=== PATIENT | male | born 1950 | race Caucasian/White ===

== ENCOUNTER 2018-03-22 04:46 | Emergency (ER) | payer MEDICARE ==
[~2018-03-22] VITALS: Ht 177.8 cm; Wt 112.3 kg
[2018-03-22 05:30] LABS: BASOPHILS # (AUTO) 0.1 X10'3 (0-0.2); BASOPHILS % (AUTO) 0.6 % (0-1); EOSINOPHILS # (AUTO) 0.1 X10'3 (0-0.9); EOSINOPHILS % (AUTO) 1.5 % (0-6); HEMATOCRIT 46.5 % (42.0-52.0); HEMOGLOBIN 15.4 g/dl (14.0-17.9); LYMPHOCYTES # (AUTO) 2.7 X10'3 (1.1-4.8); LYMPHOCYTES % (AUTO) 30.9 % (21-51); MEAN CORPUSCULAR HEMOGLOBIN 28.7 PG (27.0-31.0); MEAN CORPUSCULAR HGB CONC 33.2 % (33.0-36.5); MEAN CORPUSCULAR VOLUME 86.5 FL (78-98); MEAN PLATELET VOLUME 9.3 FL (7.4-10.4); MONOCYTES # (AUTO) 0.6 X10'3 (0-0.9); MONOCYTES % (AUTO) 6.6 % (2-12); NEUTROPHILS # (AUTO) 5.3 X10'3 (1.8-7.7); NEUTROPHILS % (AUTO) 60.4 % (42-75); PLATELET COUNT 263 X10'3 (140-440); RED BLOOD COUNT 5.37 X10'6 (4.70-6.10); RED CELL DISTRIBUTION WIDTH 14.4 % (11.5-14.5); WHITE BLOOD COUNT 8.8 X10'3 (4.5-11.0)
[2018-03-22] MEDS ORDERED: POTA10CA44 PO (05:34)
[2018-03-22] MEDS ORDERED: CHLO25TA10 (05:34)
[2018-03-22] MEDS ORDERED: METF500T PO (05:34)
[2018-03-22] MEDS ORDERED: VALA500T37 PO (05:34)
[2018-03-22] MEDS ORDERED: ASPI-1264 PO (05:34)
[2018-03-22] MEDS ORDERED: AZIL1TAB2 (05:34)
[2018-03-22] MEDS ORDERED: CARV3.122 PO (05:34)
[2018-03-22] MEDS ORDERED: ATOR20TA PO (05:34)
[2018-03-22] MEDS ORDERED: TEST2.5G2 TD (05:34)
[2018-03-22 05:38] LABS: PARTIAL THROMBOPLASTIN TIME 27 SECONDS (22-32); PROTHROMBIN TIME 10.8 SECONDS (9.0-12.0)
[2018-03-22 05:49] LABS: ALANINE AMINOTRANSFERASE 28 U/L (12-78); ALBUMIN 3.9 G/DL (3.4-5.0); ALBUMIN/GLOBULIN RATIO 1.1 (1.1-1.5); ALKALINE PHOSPHATASE 96 IU/L (46-116); ANION GAP 10 (8-16); ASPARTATE AMINO TRANSFERASE 15 U/L (10-37); BILIRUBIN,TOTAL 0.8 MG/DL (0.1-1.0); BLOOD UREA NITROGEN 16 MG/DL (7-18); BUN/CREATININE RATIO 12.8 (5.4-32.0); CALCIUM 9.1 MG/DL (8.5-10.1); CHLORIDE 103 MMOL/L (99-107); CREATININE 1.25 MG/DL (0.60-1.10); GLUCOSE 115 MG/DL (70-104); POTASSIUM 3.4 MMOL/L (3.5-5.1); SODIUM 140 MMOL/L (135-145); TOTAL CARBON DIOXIDE 27.4 MMOL/L (24-32); TOTAL PROTEIN 7.4 G/DL (6.4-8.2); eGFR 57 ML/MIN
[2018-03-22 09:41] VITALS: BP 134/89
== END 2018-03-22 09:42 | disposition home or self-care (01) ==
LOC: ER 04:47
DX: R07.9 Chest pain, unspecified (principal); Z79.82 Long term (current) use of aspirin; Z79.84 Long term (current) use of oral hypoglycemic drugs; Z79.899 Other long term (current) drug therapy
CPT/HCPCS: 36415; 71045; 80053; 84484; 85025; 85610; 85730; 93005; 99285; J7030

== ENCOUNTER 2019-04-28 08:57 | Inpatient (IN) | payer MEDICARE ==
[~2019-04-28] VITALS: Ht 180.3 cm; Wt 106.8 kg
[~2019-04-28 08:57] MED LIST: ASPI-1264 PO; ATOR20TA PO; AZIL1TAB2 PO; CARV3.122 PO; CHLO25TA10; METF500T PO; POTA10CA44 PO; TEST2.5G2 TD; VALA500T37 PO
--- NOTE | 2019-04-28 09:10 | NUR ---
PATIENT IN ROOM WITH GOWN ON. SPEECH WNL, NO FACIAL DROOP NOTED, PATIETN STANDING IN ROOM, MOVING WNL LABS DRAWN, PATIETN TO CT SCAN IN WC
--- NOTE | 2019-04-28 09:19 | NUR ---
BACK FROM CT
[2019-04-28 09:23] LABS: BASOPHILS # (AUTO) 0.1 X10'3 (0-0.2); BASOPHILS % (AUTO) 0.7 % (0-1); EOSINOPHILS # (AUTO) 0.1 X10'3 (0-0.9); EOSINOPHILS % (AUTO) 1.8 % (0-6); HEMATOCRIT 42.4 % (42.0-52.0); LYMPHOCYTES # (AUTO) 2.3 X10'3 (1.1-4.8); MEAN CORPUSCULAR HEMOGLOBIN 28.4 PG (27.0-31.0); MEAN CORPUSCULAR HGB CONC 33.1 g/dL (33.0-36.5); MEAN CORPUSCULAR VOLUME 85.9 FL (78-98); MEAN PLATELET VOLUME 8.5 FL (7.4-10.4); MONOCYTES # (AUTO) 0.6 X10'3 (0-0.9); NEUTROPHILS # (AUTO) 5.1 X10'3 (1.8-7.7); NEUTROPHILS % (AUTO) 62.5 % (42-75); PLATELET COUNT 293 X10'3 (140-440); RED BLOOD COUNT 4.93 X10'6 (4.70-6.10); RED CELL DISTRIBUTION WIDTH 16.3 % (11.5-14.5); WHITE BLOOD COUNT 8.2 X10'3 (4.5-11.0)
[2019-04-28 09:33] LABS: PARTIAL THROMBOPLASTIN TIME 29 SECONDS (22-32)
--- NOTE | 2019-04-28 09:45 | NUR ---
STROKE ALERT CALLED OFF BY DR DOMINGUEZ
[2019-04-28 09:57] LABS: ALANINE AMINOTRANSFERASE 22 U/L (12-78); ALBUMIN 3.7 G/DL (3.4-5.0); ALKALINE PHOSPHATASE 98 IU/L (46-116); ANION GAP 12 (8-16); ASPARTATE AMINO TRANSFERASE 12 U/L (10-37); BILIRUBIN,TOTAL 0.7 MG/DL (0.1-1.0); BLOOD UREA NITROGEN 16 MG/DL (7-18); BUN/CREATININE RATIO 11.9 (5.4-32.0); CHLORIDE 104 MMOL/L (99-107); CREATININE 1.35 MG/DL (0.60-1.10); GLUCOSE 129 MG/DL (70-104); SODIUM 141 MMOL/L (135-145); TOTAL CARBON DIOXIDE 25.2 MMOL/L (24-32); TOTAL PROTEIN 7.5 G/DL (6.4-8.2); TROPONIN I < 0.04 NG/ML (0.0-0.05); eGFR 52 ML/MIN
[2019-04-28] MEDS ORDERED: acetaminophen 325mg tablet PO PRN ×2 (11:15)
[2019-04-28] MEDS ORDERED: magnesium 2GM in 50ml NS 50 ML IV PRN (11:15)
[2019-04-28] MEDS ORDERED: potassium CL 10mEq/100ml bag 100 ML IV PRN ×2 (11:15)
[2019-04-28] MEDS ORDERED: ondansetron/PF 4mg/2ml inj IV PRN (11:15)
[2019-04-28] MEDS ORDERED: morphine 2 MG/ML inj. syringe IV PRN (11:15)
[2019-04-28] MEDS ORDERED: mag hydrox/Alum hydrox/simeth 30ml oral suspension PO PRN (11:15)
[2019-04-28] MEDS ORDERED: magnesium 4gm in 100ml NS 100 ML IV PRN (11:15)
[2019-04-28] MEDS ORDERED: HYDROcodone/acetaminophen 5mg/325mg tablet PO PRN (11:15)
[2019-04-28] MEDS ORDERED: magnesium hydroxide 30ml (MOM) UD suspension PO PRN (11:15)
[2019-04-28] MEDS ORDERED: magnesium Cl slow-release 64mg tablet PO PRN (11:15)
[2019-04-28] MEDS ORDERED: potassium Cl 20 mEq SR tablet PO PRN ×2 (11:15)
[2019-04-28 11:18] VITALS: BP 116/75
[2019-04-28] MEDS ORDERED: dextrose 50%-water 50ml dispensing syringe IV PRN ×2 (11:30)
[2019-04-28] MEDS ORDERED: insulin Lispro (HumaLOG) vial - multi-dose SQ SCH (11:30)
[2019-04-28] MEDS ORDERED: glucagon, human recombinant 1mg kit SUBCUT PRN (11:30)
[2019-04-28] MEDS ORDERED: MESSAGE TO PHARMACY PO ONE (11:30)
[2019-04-28] MEDS ORDERED: dextrose ORAL solution 15 GM/59 ML bottle PO PRN ×2 (11:30)
[2019-04-28] MEDS: normal saline 1000ml 1,000 ML IV SCH (11:40)
[2019-04-28] MEDS ORDERED: POTA-82 PO (11:48)
[2019-04-28] MEDS ORDERED: SPIR25TA5 PO (11:48)
--- NOTE | 2019-04-28 11:54 | NUR ---
ATTEMPTED TO CALL REPORT: ADELINA FUENTES WILL CALL BACK
[2019-04-28 12:06] LABS: HEMOGLOBIN A1C 6.3 % (4.5-6.2)
[2019-04-28] MEDS ORDERED: MAGN400C PO (12:15)
[2019-04-28] MEDS ORDERED: CHOL10002 PO (12:15)
[2019-04-28] MEDS ORDERED: CRAN1CAP3 PO (12:15)
--- NOTE | 2019-04-28 12:17 | NUR ---
PHONE REPORT TO ADELINA FUENTES
--- NOTE | 2019-04-28 12:30 | NUR ---
Patient in room [facility]. I have received report from Unique FUENTES and had the opportunity to ask questions and assume patient care.
[2019-04-28 12:40] VITALS: BP 116/75
--- NOTE | 2019-04-28 12:40 | NUR ---
patient arrived on floor. walked to bed. pleasant person
[2019-04-28 17:52] VITALS: BP 135/66
--- NOTE | 2019-04-28 18:03 | NUR ---
Problems reprioritized. Patient report given, questions answered & plan of care reviewed with Rachael FUENTES.
--- NOTE | 2019-04-28 18:15 | NUR ---
Patient in room [facility]. I have received report from ALFREDO Dejesus and had the opportunity to ask questions and assume patient care.
[2019-04-28 19:18] VITALS: BP 117/72
[2019-04-28] MEDS: heparin, porcine 5000 units/ml vial SQ SCH (19:32)
[2019-04-28] MEDS ORDERED: insulin glargine (Lantus) pen - multi-dose SQ SCH (21:00)
[2019-04-28] MEDS ORDERED: temazepam 15mg capsule PO PRN (21:00)
[2019-04-28 23:18] VITALS: BP 118/60
[2019-04-29] MEDS: normal saline 1000ml 1,000 ML IV SCH (00:10)
[2019-04-29 02:00] VITALS: BP 119/57
[2019-04-29 03:18] VITALS: BP 125/62
[2019-04-29 06:10] VITALS: BP 103/52
--- NOTE | 2019-04-29 06:23 | NUR ---
Problems reprioritized. Patient report given, questions answered & plan of care reviewed with ALFREDO Mahan.
[2019-04-29 07:17] LABS: BASOPHILS # (AUTO) 0.1 X10'3 (0-0.2); BASOPHILS % (AUTO) 0.7 % (0-1); EOSINOPHILS # (AUTO) 0.1 X10'3 (0-0.9); EOSINOPHILS % (AUTO) 1.5 % (0-6); HEMATOCRIT 39.8 % (42.0-52.0); HEMOGLOBIN 13.4 g/dl (14.0-17.9); LYMPHOCYTES # (AUTO) 2.3 X10'3 (1.1-4.8); LYMPHOCYTES % (AUTO) 30.5 % (21-51); MEAN CORPUSCULAR HEMOGLOBIN 28.6 PG (27.0-31.0); MEAN CORPUSCULAR HGB CONC 33.6 g/dL (33.0-36.5); MEAN PLATELET VOLUME 8.4 FL (7.4-10.4); MONOCYTES # (AUTO) 0.6 X10'3 (0-0.9); MONOCYTES % (AUTO) 7.5 % (2-12); NEUTROPHILS # (AUTO) 4.5 X10'3 (1.8-7.7); NEUTROPHILS % (AUTO) 59.8 % (42-75); PLATELET COUNT 268 X10'3 (140-440); RED BLOOD COUNT 4.68 X10'6 (4.70-6.10); RED CELL DISTRIBUTION WIDTH 16.5 % (11.5-14.5); WHITE BLOOD COUNT 7.6 X10'3 (4.5-11.0)
[2019-04-29 07:42] LABS: ALANINE AMINOTRANSFERASE 24 U/L (12-78); ALBUMIN 3.5 G/DL (3.4-5.0); ALKALINE PHOSPHATASE 94 IU/L (46-116); ANION GAP 11 (8-16); ASPARTATE AMINO TRANSFERASE 20 U/L (10-37); BILIRUBIN,TOTAL 0.6 MG/DL (0.1-1.0); BLOOD UREA NITROGEN 19 MG/DL (7-18); BUN/CREATININE RATIO 13.5 (5.4-32.0); CHLORIDE 105 MMOL/L (99-107); CHOL/HDL RATIO 4.3 (0.00-4.99); CHOLESTEROL 151 MG/DL (0-200); CREATININE 1.41 MG/DL (0.60-1.10); GLUCOSE 104 MG/DL (70-104); HDL CHOLESTEROL 35 MG/DL (35-60); LDL CHOLESTEROL 78 MG/DL (50-100); MAGNESIUM 1.6 MG/DL (1.5-2.4); SODIUM 142 MMOL/L (135-145); TOTAL CARBON DIOXIDE 26.1 MMOL/L (24-32); TRIGLYCERIDES 348 MG/DL (20-135); eGFR 50 ML/MIN
[2019-04-29] MEDS ORDERED: K and/or MAG REPLACEMENT MC SCH (08:00)
[2019-04-29] MEDS: heparin, porcine 5000 units/ml vial SQ SCH (08:08)
[2019-04-29] MEDS ORDERED: losartan 50mg tablet PO SCH (09:28)
[2019-04-29] MEDS ORDERED: chlorthalidone 25mg tablet PO SCH (09:29)
[2019-04-29] MEDS ORDERED: testosterone 5gm gel packet TD SCH (09:30)
[2019-04-29] MEDS ORDERED: potassium Cl 20 mEq SR tablet PO SCH (09:31)
[2019-04-29 10:00] VITALS: BP 126/80
--- NOTE | 2019-04-29 11:00 | NUR ---
Dr Chavez came to see patient. Patient educated to follow up with pcp and neurologist. Patient stable and resolved of symptoms.
--- NOTE | 2019-04-29 11:23 | NUR ---
Patient said he wanted to take his morning meds that were resumed at home. He didn't want to take them here.
[2019-04-29] MEDS ORDERED: carVEDilol 3.125mg tablet PO SCH (20:00)
[2019-04-29] MEDS ORDERED: atorvastatin 20mg tablet PO SCH (21:00)
[2019-04-30] MEDS ORDERED: aspirin 325mg tablet PO SCH (08:00)
[2019-04-30] MEDS ORDERED: spironolactone 25 MG tablet PO SCH (08:00)
[2019-04-30] MEDS ORDERED: magnesium oxide 400mg tablet PO SCH (08:00)
== END 2019-04-29 10:59 | disposition home or self-care (01) | DRG 700 ==
LOC: ER 08:58 → ORTHO 4S 13:04
PROVIDERS: ADMIT Internal Medicine; ATTEND Internal Medicine
DX: N28.9 Disorder of kidney and ureter, unspecified (principal); Z66 Do not resuscitate; E78.5 Hyperlipidemia, unspecified; E11.9 Type 2 diabetes mellitus without complications; E78.00 Pure hypercholesterolemia, unspecified; E78.1 Pure hyperglyceridemia; I10 Essential (primary) hypertension; Z86.73 Personal history of transient ischemic attack (TIA), and cerebral infarction without residual deficits; Z88.8 Allergy status to other drugs, medicaments and biological substances
CPT/HCPCS: 36415; 70450; 70544; 70551; 71045; 80053; 80061; 82948; 83036; 83735; 84484; 85025; 85610; 85730; 87081; 92508; 92616; 93005; 93880; 96372; 97162; 97530; 99285; G0378; J1644; J1815; J7030

== ENCOUNTER 2022-03-13 05:06 | Emergency (ER) | payer MEDICARE ==
[~2022-03-13] VITALS: Ht 177.8 cm; Wt 104.5 kg
[~2022-03-13 05:06] MED LIST changes: -CHLO25TA10; +CHOL10002 PO; +CRAN1CAP3 PO; +MAGN400C PO; +POTA-82 PO; -POTA10CA44 PO; +SPIR25TA5 PO; -VALA500T37 PO; +VALA500T41 PO
[2022-03-13 06:19] LABS: EOSINOPHILS # (AUTO) 0.1 X10'3 (0-0.9); HEMOGLOBIN 14.6 g/dl (14.0-17.9)
[2022-03-13 06:20] LABS: BASOPHILS % (AUTO) 0.5 % (0-1); EOSINOPHILS % (AUTO) 1.2 % (0-6); LYMPHOCYTES % (AUTO) 25.7 % (21-51); MEAN CORPUSCULAR HEMOGLOBIN 29.1 PG (27.0-31.0); MEAN CORPUSCULAR HGB CONC 33.9 g/dL (33.0-36.5); MEAN PLATELET VOLUME 8.1 FL (7.4-10.4); MONOCYTES # (AUTO) 0.6 X10'3 (0-0.9); MONOCYTES % (AUTO) 7.4 % (2-12); NEUTROPHILS % (AUTO) 65.2 % (42-75); PLATELET COUNT 265 X10'3 (140-440); RED BLOOD COUNT 5.01 X10'6 (4.70-6.10); RED CELL DISTRIBUTION WIDTH 15.2 % (11.5-14.5); WHITE BLOOD COUNT 7.7 X10'3 (4.5-11.0)
[2022-03-13 06:25] LABS: APTT 29 SECONDS (22-32)
[2022-03-13 06:26] LABS: ALANINE AMINOTRANSFERASE 25 U/L (12-78); ALBUMIN 3.6 G/DL (3.4-5.0); ALKALINE PHOSPHATASE 113 IU/L (46-116); ANION GAP 13 (8-16); ASPARTATE AMINO TRANSFERASE 14 U/L (10-37); BILIRUBIN,TOTAL 0.7 MG/DL (0.1-1.0); BLOOD UREA NITROGEN 25 MG/DL (7-18); CALCIUM 8.8 MG/DL (8.5-10.1); CHLORIDE 103 MMOL/L (99-107); CREATININE 1.56 MG/DL (0.60-1.10); GLUCOSE 131 MG/DL (70-104); POTASSIUM 3.5 MMOL/L (3.5-5.1); SODIUM 142 MMOL/L (135-145); TOTAL CARBON DIOXIDE 26.1 MMOL/L (24-32); TOTAL PROTEIN 7.2 G/DL (6.4-8.2); eGFR 44 ML/MIN
[2022-03-13] MEDS ORDERED: CLOP75TA15 PO (08:23)
[2022-03-13 08:30] VITALS: BP 114/78
== END 2022-03-13 08:54 | disposition home or self-care (01) ==
LOC: ER 05:06
DX: R20.2 Paresthesia of skin (principal); E78.00 Pure hypercholesterolemia, unspecified; I10 Essential (primary) hypertension; Z88.8 Allergy status to other drugs, medicaments and biological substances
CPT/HCPCS: 36415; 71045; 80053; 85025; 85610; 85730; 93005; 99285

== ENCOUNTER 2022-09-23 11:54 | Day surgery (SDC) | payer MEDICARE ==
[2022-09-23] VITALS (10 sets, daily range): BP systolic 105–134; BP diastolic 63–81
[~2022-09-23] VITALS: Ht 177.8 cm; Wt 109.0 kg
[~2022-09-23 11:54] MED LIST changes: +CLOP75TA15 PO
[2022-09-23] MEDS ORDERED: fentaNYL/PF 50MCG/1 ML 2ML syringe IV ONE (12:10)
[2022-09-23] MEDS ORDERED: normal saline 1000ml 1,000 ML IV SCH (12:10)
[2022-09-23] MEDS ORDERED: MIDAZolam 1mg/ml 10ml vial IV ONE (12:10)
[2022-09-23] MEDS ORDERED: ZALE10CA PO (12:19)
[2022-09-23] MEDS ORDERED: VIT1CAPS46 PO (12:19)
[2022-09-23] MEDS ORDERED: TEST5GEL18 TD (12:19)
[2022-09-23] MEDS ORDERED: METF-436 PO (12:19)
== END 2022-09-23 14:45 | disposition home or self-care (01) ==
LOC: SSTAY O 11:54
PROVIDERS: ATTEND Student in an Organized Health Care Education/Training Program
DX: G45.9 Transient cerebral ischemic attack, unspecified (principal); I35.8 Other nonrheumatic aortic valve disorders; I10 Essential (primary) hypertension; E11.9 Type 2 diabetes mellitus without complications; Z79.84 Long term (current) use of oral hypoglycemic drugs; Z79.01 Long term (current) use of anticoagulants; Z79.899 Other long term (current) drug therapy; Z98.890 Other specified postprocedural states; Z88.1 Allergy status to other antibiotic agents; Z88.8 Allergy status to other drugs, medicaments and biological substances; Z91.030 Bee allergy status
CPT/HCPCS: 93312; 93325; 94760; J7030; A4620